=== PATIENT | female | born 1990 | race African-American/Black ===

== ENCOUNTER 2017-06-30 10:38 | Emergency (ER) | payer OTHER ==
[~2017-06-30] VITALS: Ht 160 cm; Wt 79.1 kg
[2017-06-30 10:49] VITALS: BP 126/74; TEMP 98.8
[2017-06-30 13:15] LABS: COLLECTION METHOD CLEAN CATCH
[2017-06-30 13:16] LABS: MUCOUS Present /lpf; PH 7 (5-8); SQUAMOUS EPITHELIAL 0-2 /hpf; URINE APPEARANCE Clear; URINE BACTERIA None Seen /hpf; URINE BILIRUBIN Negative (NEGATIVE); URINE BLOOD Negative (NEGATIVE); URINE COLOR Yellow; URINE GLUCOSE Negative (NEGATIVE); URINE KETONE Trace (NEGATIVE); URINE LEUKOCYTE ESTERASE Negative (NEGATIVE); URINE NITRATE Negative (NEGATIVE); URINE PROTEIN(semi-quant) Negative (NEGATIVE); URINE RBC 0-2 /hpf; URINE UROBILINOGEN Negative (NEGATIVE)
[2017-06-30 13:23] LABS: BASO % 0.2 % (0.0-2.0); EOS % 0.4 % (0-4.0); GRAN # 6.1 (1.4-6.5); GRAN % 68.6 % (42.2-75.2); HEMATOCRIT 39.9 % (37.0-47.0); HEMOGLOBIN 13.6 g/dl (12.5-16.0); LYMPH # 2.1 (1.2-3.4); LYMPH % 23.3 % (20.0-51.0); MEAN CELL VOLUME 93 fl (80.0-100.0); MEAN CORPUSCULAR HEMOGLOBIN 32 pg (27.0-31.0); MEAN CORPUSCULAR HGB CONC 34 g/dl (33.0-37.0); MONO # 0.6 (0.1-0.6); MONO % 7.1 % (1.7-9.3); PLATELET COUNT 336 K/mm3 (130-400); RED BLOOD COUNT 4.28 M/mm3 (4.10-5.30); REDCELL DISTRIBUTION WIDTH-CV 12.4 % (11.5-14.5)
[2017-06-30 13:44] LABS: BILIRUBIN,TOTAL 0.6 mg/dL (0.0-1.0); CALCIUM 9.9 mg/dL (8.4-10.2); CREATININE, serum 0.57 mg/dL (0.52-1.25); POTASSIUM 3.6 mmol/L (3.4-5.0); TOTAL PROTEIN 8.4 gm/dL (6.4-8.2)
[2017-06-30] MEDS ORDERED: PHENERGAN 25 TA25 MG PO (15:16)
[2017-06-30 15:31] VITALS: PULSE 88
== END 2017-06-30 15:32 | disposition home or self-care (01) ==
LOC: COL.ER 10:38
PROVIDERS: Nurse Practitioner
DX: O21.8 Other vomiting complicating pregnancy (principal); Z3A.08 8 weeks gestation of pregnancy; Z90.710 Acquired absence of both cervix and uterus
CPT/HCPCS: J2550; J7030